=== PATIENT | male | born 1965 | race Caucasian/White ===

== ENCOUNTER 2016-12-22 22:52 | Emergency (ER) | payer OTHER ==
[~2016-12-22 22:52] MED LIST: COUMADIN2 MG PO; COUMADIN2.5 MG PO; COUMADIN7.5 MG PO; LISINOPRIL10 MG PO; LOVENOX100 MG/ML SC; METHADONE HCL10 MG PO; PERCOCET1 TA1 PO; PREDNISONE20 MG PO; PRILOSEC20 MG PO; VICODIN EQUIVAL1 TAB PO; [UNRECOGNIZED DRUG - OTHER] PO
--- NOTE | 2016-12-23 00:59 | ED CLINICAL REPORT ---
Clinical Report - Physicians/Mid Levels [facility] [address] [place] [address] 12/22/2016 22:54 Patient: MILAGROS ANDERSON JR Time Seen: 23:46. Arrived- By private vehicle. Historian- patient. HISTORY OF PRESENT ILLNESS Chief Complaint: LOWER EXTREMITY PAIN and SWELLING. This started about 29 hours ago and is still present. It was gradual in onset and has been waxing/waning. Modifying factors- worsened by walking. Relieved by remaining still. Severity is described as being severe. The quality is noted to be similar to prior episodes. No radiation. Symptoms located in the area of the right leg and left leg. The patient has had swelling, but not had redness. He has had difficulty walking. It has been associated with pain in both legs. No bladder dysfunction, bowel dysfunction, sensory loss or motor loss. Patient notes the possibility of an injury. (on his feet a lot). Similar symptoms previously: Recent medical care: Not recently seen/assessed. REVIEW OF SYSTEMS No cough, chest pain, difficulty breathing, fever or back pain. No headache, sore throat, abdominal pain, vomiting or black stools. No difficulty with urination or bloody stools. All systems otherwise negative, except as recorded above. PAST HISTORY ( Primary physician (De La Cruz) PROBLEMS: DVT - Deep Venous Thrombosis [Active]. --23:30 Jonnathan Esposito R.N. Laceration. Crush Injury. Gastroesophageal Reflux. Spinal Fracture. Chronic Venous Insufficiency. Cellulitis. DVT - Deep Venous Thrombosis. Lung Disease. Heart Disease. Hypertension. Pulmonary Embolism. Hyperventilation. COPD - Chronic Obstructive Pulmonary Disease. Muscle disorder . Contusion. Fall. Anemia. Primary (Essential) Thrombocytosis. Lifestyle / Substance Problems. Abscess. Chronic pain - has been on methadone SURGERIES: Abscess drained. Hernia Repair. Inguinal Hernia Repair). Medications: Aspirin Oral (Tablet 325 mg) 1 tablet, daily. Methadone 100mg daily (quit this program "cold turkey" about two months ago). Allergies: No Known Drug Allergy. SOCIAL HISTORY Smoker- current status unknown. No alcohol use or drug use. ADDITIONAL NOTES The nursing notes have been reviewed. PHYSICAL EXAM Vital Signs: 12/22/2016 23:20 BP: 129/91. HR: 82. RR: 18. O2 saturation: 98%. Temp: 99.2 F. Pain level now: 7/10. Appearance: Alert. Oriented X3. No acute distress. Eyes: Eyes normal inspection. No pale conjunctivae or scleral icterus. ENT: Pharynx normal. Neck: Normal inspection. Neck supple. CVS: Normal heart rate and rhythm. Heart sounds normal. Respiratory: No respiratory distress. Breath sounds normal. Abdomen: Soft and nontender. Back: Normal inspection. No tenderness. Skin: Skin intact. Skin warm and dry. Normal skin color. Normal skin turgor. Extremities: Right leg: moderate tenderness and swelling located in the upper, mid and lower leg. Neurovascular intact distally. No erythema, laceration, abrasion or ecchymosis. No limitation of weight bearing. Left leg: moderate tenderness and mild swelling located in the anterior aspect of upper and mid leg. Neurovascular intact distally. (no fluctuance). No laceration, ecchymosis, puncture wound, foreign body or deformity. No limitation of weight bearing. No signs of infection involving the lower extremities. Extremities otherwise negative. Neuro, Vascular and Tendons: No pulse deficit present. Lower extremity capillary refill not prolonged. Neuro: Oriented X 3. No motor deficit. No sensory deficit. LABS, X-RAYS, AND EKG Lower Extremity Sonography: left leg neg - no DVT; no abscess right lower extremity: chronic nonocclusive clot in Right leg from SFV to Popliteal. The exam was performed by a technician plant and maintenance. A comparison with prior studies reveals that the findings are unchanged. Pulse Oximetry: 12/22/2016 23:20 O2 saturation: 98%. (FIO2 - room air). Interpretation: normal. PROGRESS AND PROCEDURES Course of Care: Lovenox 80 mg subQ given. This is a longstanding problem. Long discussion with pt about narcotic use - pt wishes to have opiate, but he exceeds the limit of our pain plan. Patient/family counseled. Old medical records ordered. (4 visits to [facility] ED in past 12 months with narcotic managment). Disposition: Discharged. Condition: stable and improved. CLINICAL IMPRESSION Chronic deep venous thrombosis of the right popliteal and tibial vein. Muscle strain of the anterior aspect of the left lower leg. INSTRUCTIONS Apply ice. Elevate affected areas above chest level. Do not smoke. Seek medical help to quit smoking. Warnings: Further evaluation is necessary in order to recheck abnormal lab and obtain test results. It is very important to follow up with a physician. GENERAL WARNINGS: Return or contact your physician immediately if your condition worsens or changes unexpectedly, if not improving as expected, or if other problems arise. Prescription Medications: Coumadin 5 mg: take 1 tablet orally every 24 hours. Dispense five (5). No refills. Substitution is permissible. Follow-up: Follow up with your doctor tomorrow. Screening today revealed the patient's blood pressure to be in the hypertensive range. The patient should follow up with a primary care provider for blood pressure management. Follow-up with: Ed Li MD, [facility], , [facility], [address] [place] [address] Follow up tomorrow. Follow-up with: [facility], , , [facility] [address], [place] [address]; [facility], , , [address] [place] [address] , [place], ; [facility], , [address] [place] [address] Follow up tomorrow. (Electronically signed by Arnoldo Kramer DO 12/23/2016 1:45)
--- NOTE | 2016-12-23 00:59 | ED ORDER SUMMARY ---
..... Patient: MILAGROS ANDERSON JR OrderSheet [facility] VisitID: [id number] [address] [place] [address] 51y, M Registration Date/Time: 12/22/2016 ORDER SHEET Weight: 80.7 kg (stated) Allergies: No Known Drug Allergy GENERAL ORDERS: US Venous Bilat Urgent (23:54 12/22/2016 Fredy MELTON) ([facility] Sc[facility] (1:02 Yamila R.N.) MEDICATION ORDERS: Lovenox Subcut 80 mg (HIGH ALERT MEDICATION, NOW) (00:55 12/23/2016 Fredy MELTON) (0:58 Yamila R.N.) IV FLUIDS: ORDER SHEET NOTES: [Electronically signed by Arnoldo Kramer DO (01:45 12/23/2016)] [Electronically signed by Jonnathan Esposito R.N. (04:40 12/23/2016)] [Electronically locked/signed by Jonnathan Esposito R.N. (04:40 12/23/2016)]
--- NOTE | 2016-12-23 00:59 | ED ORDER SUMMARY ---
..... Patient: MILAGROS ANDERSON JR OrderSheet [facility] VisitID: [id number] [address] [place] [address] 51y, M Registration Date/Time: 12/22/2016 ORDER SHEET Weight: 80.7 kg (stated) Allergies: No Known Drug Allergy GENERAL ORDERS: US Venous Bilat Urgent (23:54 12/22/2016 Fredy MELTON) (Ac 23:[facility] Operator) (1:02 Yamila R.N.) MEDICATION ORDERS: Lovenox Subcut 80 mg (HIGH ALERT MEDICATION, NOW) (00:55 12/23/2016 Fredy MELTON) (0:58 Yamila R.N.) IV FLUIDS: ORDER SHEET NOTES: [Electronically signed by rAnoldo Kramer DO (01:45 12/23/2016)] [Electronically signed by Jonnathan Esposito R.N. (04:40 12/23/2016)] [Electronically locked/signed by Jonnathan Esposito R.N. (04:40 12/23/2016)]
--- NOTE | 2016-12-23 00:59 | ED CLINICAL REPORT ---
Clinical Report - Physicians/Mid Levels [facility] [address] [place] [address] 12/22/2016 22:54 Patient: MILAGROS ANDERSON JR Time Seen: 23:46. Arrived- By private vehicle. Historian- patient. HISTORY OF PRESENT ILLNESS Chief Complaint: LOWER EXTREMITY PAIN and SWELLING. This started about 29 hours ago and is still present. It was gradual in onset and has been waxing/waning. Modifying factors- worsened by walking. Relieved by remaining still. Severity is described as being severe. The quality is noted to be similar to prior episodes. No radiation. Symptoms located in the area of the right leg and left leg. The patient has had swelling, but not had redness. He has had difficulty walking. It has been associated with pain in both legs. No bladder dysfunction, bowel dysfunction, sensory loss or motor loss. Patient notes the possibility of an injury. (on his feet a lot). Similar symptoms previously: Recent medical care: Not recently seen/assessed. REVIEW OF SYSTEMS No cough, chest pain, difficulty breathing, fever or back pain. No headache, sore throat, abdominal pain, vomiting or black stools. No difficulty with urination or bloody stools. All systems otherwise negative, except as recorded above. PAST HISTORY ( Primary physician (De La Cruz) PROBLEMS: DVT - Deep Venous Thrombosis [Active]. --23:30 Jonnathan Esposito R.N. Laceration. Crush Injury. Gastroesophageal Reflux. Spinal Fracture. Chronic Venous Insufficiency. Cellulitis. DVT - Deep Venous Thrombosis. Lung Disease. Heart Disease. Hypertension. Pulmonary Embolism. Hyperventilation. COPD - Chronic Obstructive Pulmonary Disease. Muscle disorder . Contusion. Fall. Anemia. Primary (Essential) Thrombocytosis. Lifestyle / Substance Problems. Abscess. Chronic pain - has been on methadone SURGERIES: Abscess drained. Hernia Repair. Inguinal Hernia Repair). Medications: Aspirin Oral (Tablet 325 mg) 1 tablet, daily. Methadone 100mg daily (quit this program "cold turkey" about two months ago). Allergies: No Known Drug Allergy. SOCIAL HISTORY Smoker- current status unknown. No alcohol use or drug use. ADDITIONAL NOTES The nursing notes have been reviewed. PHYSICAL EXAM Vital Signs: 12/22/2016 23:20 BP: 129/91. HR: 82. RR: 18. O2 saturation: 98%. Temp: 99.2 F. Pain level now: 7/10. Appearance: Alert. Oriented X3. No acute distress. Eyes: Eyes normal inspection. No pale conjunctivae or scleral icterus. ENT: Pharynx normal. Neck: Normal inspection. Neck supple. CVS: Normal heart rate and rhythm. Heart sounds normal. Respiratory: No respiratory distress. Breath sounds normal. Abdomen: Soft and nontender. Back: Normal inspection. No tenderness. Skin: Skin intact. Skin warm and dry. Normal skin color. Normal skin turgor. Extremities: Right leg: moderate tenderness and swelling located in the upper, mid and lower leg. Neurovascular intact distally. No erythema, laceration, abrasion or ecchymosis. No limitation of weight bearing. Left leg: moderate tenderness and mild swelling located in the anterior aspect of upper and mid leg. Neurovascular intact distally. (no fluctuance). No laceration, ecchymosis, puncture wound, foreign body or deformity. No limitation of weight bearing. No signs of infection involving the lower extremities. Extremities otherwise negative. Neuro, Vascular and Tendons: No pulse deficit present. Lower extremity capillary refill not prolonged. Neuro: Oriented X 3. No motor deficit. No sensory deficit. LABS, X-RAYS, AND EKG Lower Extremity Sonography: left leg neg - no DVT; no abscess right lower extremity: chronic nonocclusive clot in Right leg from SFV to Popliteal. The exam was performed by a bench repair technician. A comparison with prior studies reveals that the findings are unchanged. Pulse Oximetry: 12/22/2016 23:20 O2 saturation: 98%. (FIO2 - room air). Interpretation: normal. PROGRESS AND PROCEDURES Course of Care: Lovenox 80 mg subQ given. This is a longstanding problem. Long discussion with pt about narcotic use - pt wishes to have opiate, but he exceeds the limit of our pain plan. Patient/family counseled. Old medical records ordered. ([address] [facility] ED in past 12 months with narcotic managment). Disposition: Discharged. Condition: stable and improved. CLINICAL IMPRESSION Chronic deep venous thrombosis of the right popliteal and tibial vein. Muscle strain of the anterior aspect of the left lower leg. INSTRUCTIONS Apply ice. Elevate affected areas above chest level. Do not smoke. Seek medical help to quit smoking. Warnings: Further evaluation is necessary in order to recheck abnormal lab and obtain test results. It is very important to follow up with a physician. GENERAL WARNINGS: Return or contact your physician immediately if your condition worsens or changes unexpectedly, if not improving as expected, or if other problems arise. Prescription Medications: Coumadin 5 mg: take 1 tablet orally every 24 hours. Dispense five (5). No refills. Substitution is permissible. Follow-up: Follow up with your doctor tomorrow. Screening today revealed the patient's blood pressure to be in the hypertensive range. The patient should follow up with a primary care provider for blood pressure management. Follow-up with: Ed Li MD, [facility], , [facility], [address] [place] [address] Follow up tomorrow. Follow-up with: [facility], , , [facility] [address], [place] [address]; [facility], , , [address] [place] [address] , [place], ; [facility], , [address] [place] [address] Follow up tomorrow. (Electronically signed by Arnoldo Kramer DO 12/23/2016 1:45)
--- NOTE | 2016-12-23 00:59 | ED NURSING NOTES ---
Clinical Report - Nurses [facility] [address] [place] [address] 12/22/2016 22:54 Patient: MILAGROS ANDERSON JR TRIAGE Triage time 23:Dec 22 2016. Acuity: LEVEL 3. Chief Complaint: RIGHT LOWER EXTREMITY PAIN, SWELLING and REDNESS. LEFT LOWER EXTREMITY PAIN, SWELLING and REDNESS. Alert. SEPSIS SCREEN: Sepsis Screen. Negative (no infection suspected/documented). JUAN ANTONIO COMA SCORE: Juan Antonio Coma Scale: 15- eyes open spontaneously (4); best verbal response- oriented x 4 (5); best motor response- obeys commands (6). --23:38 Jonnathan Esposito R.N. 23:20 12/22/16. BP: 129/91. HR: 82. RR: 18. O2 saturation: 98%. Temp: 99.2 F. Pain level now: 7/10. Additional comments: RLE> LLD. --23:38 Jonnathan Esposito R.N. Weight: 80.7 kg stated. Height/Length: 70 inches Per Patient. BMI: 25.5. --23:32 Jonnathan Esposito R.N. Medications Methadone 100mg daily (quit this program "cold turkey" about two months ago). --23:27 Jonnathan Esposito R.N. Aspirin Oral (Tablet 325 mg) 1 tablet, daily. --23:34 Jonnathan Esposito R.N. Medication/allergy information source: the patient. --23:38 Jonnathan Esposito R.N. Allergies No Known Drug Allergy. --23:27 Jonnathan Esposito R.N. History Arrived by private vehicle. Historian: patient. Accompanied by family. Primary physician (Dorothy). ( Fighting a DVT in the RLE and now having pain and swelling in the LLE. Pt states that he forgot to take his Xarelto for the last two weeks (he ran out of the RX and didn't get it refills).). No injury occurred. This occurred yesterday (about 29 hours ago). He has had swelling and trouble walking. 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 (took a hot shower. Vicodin 5/325 (bowrrowed from sister). PAST MEDICAL HX: Tetanus status: up-to-date. Immunizations: status is unknown. SOCIAL HX: Light tobacco smoker (cigarette)- less than 1/2 a pack per day. No alcohol use or drug use. No infectious disease exposure. ABUSE ASSESSMENT: No report of abuse. FALL RISK ASSESSMENT: Fall risk assessment completed. No fall risk identified. NUTRITIONAL RISK ASSESSMENT: The nutritional risk assessment revealed no deficiencies. FUNCTIONAL ASSESSMENT: Functional assessment: no impairments noted. LEARNING NEEDS ASSESSMENT: The learning needs assessment revealed no barriers. SKIN INTEGRITY ASSESSMENT: Skin integrity risk assessment completed. No skin integrity risk identified. --23:38 Jonnathan Esposito R.N. PROBLEMS: DVT - Deep Venous Thrombosis [Active]. --23:30 Jonnathan Esposito R.N. Laceration. Crush Injury. Gastroesophageal Reflux. Spinal Fracture. Chronic Venous Insufficiency. Cellulitis. DVT - Deep Venous Thrombosis. Lung Disease. Heart Disease. Hypertension. Pulmonary Embolism. Abnormal Test. Hyperventilation. COPD - Chronic Obstructive Pulmonary Disease. Muscle disorder . Contusion. Fall. Immunizations. Anemia. Primary (Essential) Thrombocytosis. Lifestyle / Substance Problems. Abscess. --23:30 Jonnathan Esposito R.N. ADDITIONAL SURGERIES: Abscess drained. Hernia Repair. Inguinal Hernia Repair. --23:31 Jonnathan Esposito R.N. Interventions ID band on patient. To treatment room. --23:38 Jonnathan Esposito R.N. PHYSICAL ASSESSMENT Ambulatory to room. GENERAL / NEURO / PSYCH: Alert. EXTREMITIES: Right-sided and left-sided calf tenderness. Extremity pulses are within normal limits. Right leg: tenderness and swelling. Left leg: tenderness and swelling. SKIN: Skin intact. Skin is warm and dry. --23:38 Jonnathan Esposito R.N. NURSING PROGRESS NOTES Patient gowned. Reassurance given. Patient identifiers checked. Call light placed in reach. Side rails up x 1. Bed placed in lowest position. Brakes of bed on. Patient ready for evaluation- chart flagged and ED physician notified. --23:39 Jonnathan Esposito R.N. 00:58 12/23/2016 Lovenox (Enoxaparin Sodium) Subcutaneous 80 mg given. Given in the right abdomen. Allergies verified and confirmed 5 rights. --00:58 Jonnathan Esposito R.N. 00:05 12/23/16. BP: 126/76. HR: 101. RR: 18. Pain level now: 02/28. --04:39 Jonnathan Esposito R.N. DISPOSITION / DISCHARGE 01:10 12/23/16. BP: 145/81. HR: 89. RR: 18. O2 saturation: 100% on room air. Temp: 98.6 F. Pain level now: 03/31. Additional comments: BLE's pain. --01:32 Jonnathan Esposito R.N. Departure time: 0120. --01:32 Jonnathan Esposito R.N. 01:20. Condition at departure: unchanged. No learning barriers present. Discharge instructions provided and reviewed with the patient. Reviewed medication(s) (prescription given to pt). Reviewed referral to family practice for followup. Patient verbalized understanding. Written instructions provided in Romanian. The patient was discharged by the physician. He was discharged home and accompanied by loan servicing officer. He left the Emergency Department ambulatory and via private vehicle. Batch Unit Treater driving. --01:33 Jonnathan Esposito R.N. Locked/Released at 12/23/2016 4:40 by Jonnathan Esposito R.N.
--- NOTE | 2016-12-23 00:59 | ED NURSING NOTES ---
Clinical Report - Nurses [facility] [address] [place] [address] 12/22/2016 22:54 Patient: MILAGROS ANDERSON JR TRIAGE Triage time 23:Dec 22 2016. Acuity: LEVEL 3. Chief Complaint: RIGHT LOWER EXTREMITY PAIN, SWELLING and REDNESS. LEFT LOWER EXTREMITY PAIN, SWELLING and REDNESS. Alert. SEPSIS SCREEN: Sepsis Screen. Negative (no infection suspected/documented). JUAN ANTONIO COMA SCORE: Juan Antonio Coma Scale: 15- eyes open spontaneously (4); best verbal response- oriented x 4 (5); best motor response- obeys commands (6). --23:38 Jonnathan Esposito R.N. 23:20 12/22/16. BP: 129/91. HR: 82. RR: 18. O2 saturation: 98%. Temp: 99.2 F. Pain level now: 7/10. Additional comments: RLE> LLD. --23:38 Jonnathan Esposito R.N. Weight: 80.7 kg stated. Height/Length: 70 inches Per Patient. BMI: 25.5. --23:32 Jonnathan Esposito R.N. Medications Methadone 100mg daily (quit this program "cold turkey" about two months ago). --23:27 Jonnathan Esposito R.N. Aspirin Oral (Tablet 325 mg) 1 tablet, daily. --23:34 Jonnathan Esposito R.N. Medication/allergy information source: the patient. --23:38 Jonnathan Esposito R.N. Allergies No Known Drug Allergy. --23:27 Jonnathan Esposito R.N. History Arrived by private vehicle. Historian: patient. Accompanied by family. Primary physician (Dorothy). ( Fighting a DVT in the RLE and now having pain and swelling in the LLE. Pt states that he forgot to take his Xarelto for the last two weeks (he ran out of the RX and didn't get it refills).). No injury occurred. This occurred yesterday (about 29 hours ago). He has had swelling and trouble walking. 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 (took a hot shower. Vicodin 5/325 (bowrrowed from sister). PAST MEDICAL HX: Tetanus status: up-to-date. Immunizations: status is unknown. SOCIAL HX: Light tobacco smoker (cigarette)- less than 1/2 a pack per day. No alcohol use or drug use. No infectious disease exposure. ABUSE ASSESSMENT: No report of abuse. FALL RISK ASSESSMENT: Fall risk assessment completed. No fall risk identified. NUTRITIONAL RISK ASSESSMENT: The nutritional risk assessment revealed no deficiencies. FUNCTIONAL ASSESSMENT: Functional assessment: no impairments noted. LEARNING NEEDS ASSESSMENT: The learning needs assessment revealed no barriers. SKIN INTEGRITY ASSESSMENT: Skin integrity risk assessment completed. No skin integrity risk identified. --23:38 Jonnathan Esposito R.N. PROBLEMS: DVT - Deep Venous Thrombosis [Active]. --23:30 Jonnathan Esposito R.N. Laceration. Crush Injury. Gastroesophageal Reflux. Spinal Fracture. Chronic Venous Insufficiency. Cellulitis. DVT - Deep Venous Thrombosis. Lung Disease. Heart Disease. Hypertension. Pulmonary Embolism. Abnormal Test. Hyperventilation. COPD - Chronic Obstructive Pulmonary Disease. Muscle disorder . Contusion. Fall. Immunizations. Anemia. Primary (Essential) Thrombocytosis. Lifestyle / Substance Problems. Abscess. --23:30 Jonnathan Esposito R.N. ADDITIONAL SURGERIES: Abscess drained. Hernia Repair. Inguinal Hernia Repair. --23:31 Jonnathan Esposito R.N. Interventions ID band on patient. To treatment room. --23:38 Jonnathan Esposito R.N. PHYSICAL ASSESSMENT Ambulatory to room. GENERAL / NEURO / PSYCH: Alert. EXTREMITIES: Right-sided and left-sided calf tenderness. Extremity pulses are within normal limits. Right leg: tenderness and swelling. Left leg: tenderness and swelling. SKIN: Skin intact. Skin is warm and dry. --23:38 Jonnathan Esposito R.N. NURSING PROGRESS NOTES Patient gowned. Reassurance given. Patient identifiers checked. Call light placed in reach. Side rails up x 1. Bed placed in lowest position. Brakes of bed on. Patient ready for evaluation- chart flagged and ED physician notified. --23:39 Jonnathan Esposito R.N. 00:58 12/23/2016 Lovenox (Enoxaparin Sodium) Subcutaneous 80 mg given. Given in the right abdomen. Allergies verified and confirmed 5 rights. --00:58 Jonnathan Esposito R.N. 00:05 12/23/16. BP: 126/76. HR: 101. RR: 18. Pain level now: 02/28. --04:39 Jonnathan Esposito R.N. DISPOSITION / DISCHARGE 01:10 12/23/16. BP: 145/81. HR: 89. RR: 18. O2 saturation: 100% on room air. Temp: 98.6 F. Pain level now: 03/31. Additional comments: BLE's pain. --01:32 Jonnathan Esposito R.N. Departure time: 0120. --01:32 Jonnathan Esposito R.N. 01:20. Condition at departure: unchanged. No learning barriers present. Discharge instructions provided and reviewed with the patient. Reviewed medication(s) (prescription given to pt). Reviewed referral to family practice for followup. Patient verbalized understanding. Written instructions provided in Turkish. The patient was discharged by the physician. He was discharged home and accompanied by mechanical design technician. He left the Emergency Department ambulatory and via private vehicle. Glaze Maker driving. --01:33 Jonnathan Esposito R.N. Locked/Released at 12/23/2016 4:40 by Jonnathan Esposito R.N.
--- NOTE | 2016-12-23 04:40 | ED MAR SUMMARY ---
..... Medication Administration Record [facility] [address] [place] [address] Patient: MILAGROS ANDERSON Visit ID: [id number] 51y, M Weight: 80.7 kg Height/Length: 70 in BMI: 25.5 ALLERGIES: No Known Drug Allergy Given 00:58 12/23/2016 Jonnathan Esposito R.N. Medication Administered: LOVENOX [SUBCUTANEOUS] (ENOXAPARIN SODIUM), Dose: 80 mg Subcutaneous. Medication Ordered: Lovenox Subcut 80 mg (HIGH ALERT MEDICATION, NOW).
--- NOTE | 2016-12-23 04:40 | ED DISCHARGE INSTRUCTIONS ---
Patient: MILAGROS ANDERSON JR General Instructions [facility] VisitID: [id number] [address] [place] [address] 51y, M Registration Date/Time: 12/22/2016 Chronic deep venous thrombosis of the right popliteal and tibial vein. Muscle strain of the anterior aspect of the left lower leg. INSTRUCTIONS Apply ice. Elevate affected areas above chest level. Do not smoke. Seek medical help to quit smoking. Warnings: Further evaluation is necessary in order to recheck abnormal lab and obtain test results. It is very important to follow up with a physician. GENERAL WARNINGS: Return or contact your physician immediately if your condition worsens or changes unexpectedly, if not improving as expected, or if other problems arise. Prescription Medications: Coumadin 5 mg: take 1 tablet orally every 24 hours. Dispense five (5). No refills. Substitution is permissible. Follow-up: Follow up with your doctor tomorrow. Screening today revealed the patient's blood pressure to be in the hypertensive range. The patient should follow up with a primary care provider for blood pressure management. Follow-up with: Ed Li MD, [facility], , [facility], [address] [place] [address] [place] [address] Follow up tomorrow. Follow-up with: [facility], , , [address], [place] [address]; [facility], , , [address] [place] [address], ; [facility], [facility], , [address] [place] [address] Follow up tomorrow. ADDITIONAL INFORMATION Muscle Strain,Extremity A MUSCLE STRAIN is a stretching and tearing of muscle fibers. This causes pain, especially with motion of that muscle. There may also be some swelling and bruising. Home Care: 1) Keep the injured area raised to reduce pain and swelling. This is especially important during the first 48 hours. 2) Make an ice pack (ice cubes in a plastic bag, wrapped in a towel) and apply for 20 minutes every 1-2 hours the first day. You should continue with ice packs 3-4 times a day for the second and third days. Unless otherwise instructed, on the fourth day you may begin hot soaks or hot packs (small towel soaked in hot water) 3-4 times a day while you gently exercise the involved area. 3) You may use acetaminophen (Tylenol) or ibuprofen (Motrin, Advil) to control pain, unless another medicine was prescribed. [ NOTE : If you have chronic liver or kidney disease or ever had a stomach ulcer or GI bleeding, talk with your doctor before using these medicines.] 4) For LEG STRAINS: If CRUTCHES have been recommended, do not bear full weight on the injured leg until you can do so without pain. You may return to sports when you are able to hop and run on the injured leg without pain. Follow Up with your doctor or this facility if you are not improving within the next five days. Get Prompt Medical Attention if any of the following occur: -- Fingers or toes become swollen, cold, blue, numb or tingly -- Pain or swelling increases Deep Vein Thrombosis Deep Vein Thrombosis (DVT) means there is a blood clot in a deep vein of the leg. This may cause redness, swelling, warmth and pain of the leg. If the blood clot grows larger, a piece may break off and go to the lungs (pulmonary embolus) or to the brain (stroke). Factors that increase risk of a DVT include: overweight, smoking, use of estrogen replacement therapy. Prolonged periods without movement (such as long distance travel, wearing a fracture cast, and prolonged bed rest after surgery or during an illness) also increases the risk of a DVT. Home Care: Stay off the affected leg as much as possible during the next week. When sitting or lying down, keep the leg elevated. Compression stockings may be advised to improve blood flow in the lower legs. When resting, move your ankles, toes and knees frequently to stimulate blood flow. You will be prescribed an anti-coagulant medicine (pills or shots). Take it exactly as directed. Follow Up with your doctor as advised. NOTE: A radiologist will review any X-rays that were taken. We will notify you of any new findings that may affect your care. Get Prompt Medical Attention if any of the following occur: Shortness of breath or painful breathing Chest pain, repeated cough or coughing up blood Fever of 100.4F (38C) or higher, or as directed by your healthcare provider Increasing swelling or increasing pain in the leg Spreading redness Unexpected bleeding (nose, gums, cuts, urinary tract, vagina, rectum) How To Quit Smoking Smoking is one of the hardest habits to break. About half of all those who have ever smoked have been able to quit, and most of those (about 70%) who still smoke want to quit. Here are some of the best ways to stop smoking. Keep Trying: It takes most smokers about 8 tries before they are finally able to fully quit. So, the more often you try and fail, the better your chance of quitting the next time! So, don't give up! Go Cold [place]: Most ex-smokers quit cold turkey. Trying to cut back gradually doesn't seem to work as well, perhaps because it continues the smoking habit. Also, it is possible to fool yourself by inhaling more while smoking fewer cigarettes. This results in the same amount of nicotine in your body! Get Support: Support programs can make an important difference, especially for the heavy smoker. These groups offer lectures, methods to change your behavior and peer support. Call the free national Quitline for more information. 324-LQVJ-RFG (288-898-2338). Low-cost or free programs are offered by many hospitals, local chapters of the [place] [employer] (374-909-5545) and the [place] [employer] (996-098-7997). Support at home is important too. Non-smokers can help by offering praise and encouragement. If the smoker fails to quit, encourage them to try again! Jibr-Onl-Whitynp Medicines: For those who can't quit on their own, Nicotine Replacement Therapy (NRT) may make quitting much easier. Certain aids such as the nicotine patch, gum and lozenge are available without a prescription. However, it is best to use these under the guidance of your doctor. The skin patch provides a steady supply of nicotine to the body. Nicotine gum and lozenge gives temporary bursts of low levels of nicotine. Both methods take the edge off the craving for cigarettes. WARNING: If you feel symptoms of nicotine overdose, such as nausea, vomiting, dizziness, weakness, or fast heartbeat, stop using these and see your doctor. Prescription Medicines: After evaluating your smoking patterns and prior attempts at quitting, your doctor may offer a prescription medicine such as bupropion (Zyban, Wellbutrin), varenicline (Chantix, Champix), a niocotine inhaler or nasal spray. Each has its unique advantage and side effects which your doctor can review with you. Health Benefits Of Quitting: The benefits of quitting start right away and keep improving the longer you go without smokin minutes: blood pressure and pulse return to normal 8 hours: oxygen levels return to normal 2 days: ability to smell and taste begins to improve as damaged nerves start to regrow 2-3 weeks: circulation and lung function improves 1-9 months: decreased cough, congestion and shortness of breath; less tired 1 year: risk of heart attack decreases by half 5 years: risk of lung cancer decreases by half; risk of stroke becomes the same as a non-smoker For information about how to quit smoking, visit the following links: National Cancer T[employer] , Clearing the Air, Quit Smoking Today - an online booklet. http://www.smokefree.gov/pubs/clearing_the_air.pdf Smokefree.gov http://smokefree.gov/ QuitNet http://www.quitnet.com/ Warfarin Sodium Oral tablet What is this medicine? WARFARIN (WAR far in) is an anticoagulant. It is used to treat or prevent clots in the veins, arteries, lungs, or heart. How should I use this medicine? Take this medicine by mouth with a glass of water. Follow the directions on the prescription label. You can take this medicine with or without food. Take your medicine at the same time each day. Do not take it more often than directed. Do not stop taking except on your doctor's advice. Stopping this medicine may increase your risk of a blood clot. Be sure to refill your prescription before you run out of medicine. If your doctor or healthcare professional calls to change your dose, write down the dose and any other instructions. Always read the dose and instructions back to him or her to make sure you understand them. Tell your doctor or healthcare professional what strength of tablets you have on hand. Ask how many tablets you should take to equal your new dose. Write the date on the new instructions and keep them near your medicine. If you are told to stop taking your medicine until your next blood test, call your doctor or healthcare professional if you do not hear anything within 24 hours of the test to find out your new dose or when to restart your prior dose. A special MedGuide will be given to you by the pharmacist with each prescription and refill. Be sure to read this information carefully each time. Talk to your insurance defense attorney regarding the use of this medicine in children. Special care may be needed. What side effects may I notice from receiving this medicine? Side effects that you should report to your doctor or health director of critical care as soon as possible: back pain chills dizziness fever heavy menstrual bleeding or vaginal bleeding painful, blue, or purple toes painful, prolonged erection signs and symptoms of bleeding such as bloody or black, tarry stools; red or dark-brown urine; spitting up blood or brown material that looks like coffee grounds; red spots on the skin; unusual bruising or bleeding from the eye, gums, or nose-skin rash, itching or skin damage stomach pain unusually weak or tired yellowing of skin or eyes Side effects that usually do not require medical attention (report to your doctor or health director of critical care if they continue or are bothersome): diarrhea hair loss What may interact with this medicine? Do not take this medicine with any of the following medications: agents that prevent or dissolve blood clots aspirin or other salicylates danshen dextrothyroxine mifepristone Edgar's Wort red yeast rice This medicine may also interact with the following medications: acetaminophen agents that lower cholesterol alcohol allopurinol amiodarone antibiotics or medicines for treating bacterial, fungal or viral infections azathioprine barbiturate medicines for inducing sleep or treating seizures certain medicines for diabetes certain medicines for heart rhythm problems certain medicines for high blood pressure chloral hydrate cisapride disulfiram female hormones, including contraceptive or control pills general anesthetics herbal or dietary products like garlic, ginkgo, ginseng, green tea, or kava kava influenza virus vaccine male hormones medicines for mental depression or psychosis medicines for some types of cancer medicines for stomach problems methylphenidate NSAIDs, medicines for pain and inflammation, like ibuprofen or naproxen propoxyphene quinidine, quinine raloxifene seizure or epilepsy medicine like carbamazepine, phenytoin, and valproic acid steroids like cortisone and prednisone tamoxifen thyroid medicine tramadol vitamin c, vitamin e, and vitamin K zafirlukast zileuton What if I miss a dose? It is important not to miss a dose. If you miss a dose, call your healthcare provider. Take the dose as soon as possible on the same day. If it is almost time for your next dose, take only that dose. Do not take double or extra doses to make up for a missed dose. Where should I keep my medicine? Keep out of the reach of children. Store at room temperature between 15 and 30 degrees C (59 and 86 degrees F). Protect from light. Throw away any unused medicine after the expiration date. Do not flush down the toilet. What should I tell my health care provider before I take this medicine? They need to know if you have any of these conditions: alcoholism anemia bleeding disorders cancer diabetes heart disease high blood pressure history of bleeding in the gastrointestinal tract history of stroke or other brain injury or disease kidney or liver disease protein C deficiency protein S deficiency psychosis or dementia recent injury, recent or planned surgery or procedure an unusual or allergic reaction to warfarin, other medicines, foods, dyes, or preservatives or trying to get breast-feeding What should I watch for while using this medicine? Visit your doctor or health director of critical care for regular checks on your progress. You will need to have a blood test called a PT/INR regularly. The PT/INR blood test is done to make sure you are getting the right dose of this medicine. It is important to not miss your appointment for the blood tests. When you first start taking this medicine, these tests are done often. Once the correct dose is determined and you take your medicine properly, these tests can be done less often. Notify your doctor or health director of critical care and seek emergency treatment if you develop breathing problems; changes in vision; chest pain; severe, sudden headache; pain, swelling, warmth in the leg; trouble speaking; sudden numbness or weakness of the face, arm or leg. These can be signs that your condition has gotten worse. While you are taking this medicine, carry an identification card with your name, the name and dose of medicine(s) being used, and the name and phone number of your doctor or health director of critical care or person to contact in an emergency. Do not start taking or stop taking any medicines or drjt-aat-qogiwkj medicines except on the advice of your doctor or health director of critical care. You should discuss your diet with your doctor or health director of critical care. Do not make major changes in your diet. Vitamin K can affect how well this medicine works. Many foods contain vitamin K. It is important to eat a consistent amount of foods with vitamin K. Other foods with vitamin K that you should eat in consistent amounts are asparagus, basil, beef or pork liver, black eyed peas, broccoli, brussel sprouts, cabbage, chickpeas, cucumber with peel, green onions, green tea, okra, parsley, peas, thyme, and green leafy vegetables like beet greens, ariadne greens, endive, kale, mustard greens, spinach, turnip greens, watercress, or certain lettuces like green leaf or dinesh. This medicine can cause defects or bleeding in an unborn child. Women of childbearing age should use effective control while taking this medicine. If a woman becomes while taking this medicine, she should discuss the potential risks and her options with her health director of critical care. Avoid sports and activities that might cause injury while you are using this medicine. Severe falls or injuries can cause unseen bleeding. Be careful when using sharp tools or knives. Consider using an electric razor. Take special care brushing or flossing your teeth. Report any injuries, bruising, or red spots on the skin to your doctor or health director of critical care. If you have an illness that causes vomiting, diarrhea, or fever for more than a few days, contact your doctor. Also check with your doctor if you are unable to eat for several days. These problems can change the effect of this medicine. Even after you stop taking this medicine, it takes several days before your body recovers its normal ability to clot blood. Ask your doctor or health director of critical care how long you need to be careful. If you are going to have surgery or dental work, tell your doctor or health director of critical care that you have been taking this medicine. You have been given the following additional information: Muscle Strain, Extremity DVT Smoking Cessation Warfarin Sodium Oral tablet (Electronically signed by Arnoldo Kramer DO 12/23/2016 1:45)
--- NOTE | 2016-12-23 04:40 | ED MED RECONCILIATION SUMMARY ---
Patient: MILAGROS ANDERSON Yasmine MADRIGAL Medication Reconciliation Report [facility] VisitID: [id number] [address] [place] [address] 51y, M Registration Date/Time: 12/22/2016 Weight: 80.7 kg Height/Length: 70 in. 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 Dispense five (5). No refills. Substitution is permissible. -- Arnoldo Kramer,
--- NOTE | 2016-12-23 04:40 | ED DISCHARGE INSTRUCTIONS ---
Patient: MILAGROS ANDERSON JR General Instructions [facility] VisitID: [id number] [address] [place] [address] 51y, M Registration Date/Time: 12/22/2016 Chronic deep venous thrombosis of the right popliteal and tibial vein. Muscle strain of the anterior aspect of the left lower leg. INSTRUCTIONS Apply ice. Elevate affected areas above chest level. Do not smoke. Seek medical help to quit smoking. Warnings: Further evaluation is necessary in order to recheck abnormal lab and obtain test results. It is very important to follow up with a physician. GENERAL WARNINGS: Return or contact your physician immediately if your condition worsens or changes unexpectedly, if not improving as expected, or if other problems arise. Prescription Medications: Coumadin 5 mg: take 1 tablet orally every 24 hours. Dispense five (5). No refills. Substitution is permissible. Follow-up: Follow up with your doctor tomorrow. Screening today revealed the patient's blood pressure to be in the hypertensive range. The patient should follow up with a primary care provider for blood pressure management. Follow-up with: Ed Li MD, [facility], , [facility], [address] [place] [address] [place] [address] Follow up tomorrow. Follow-up with: [facility], , , [address], [place] [address]; [facility], , , [address] [place] [address], ; [facility], [facility], , [address] [place] [address] Follow up tomorrow. ADDITIONAL INFORMATION Muscle Strain,Extremity A MUSCLE STRAIN is a stretching and tearing of muscle fibers. This causes pain, especially with motion of that muscle. There may also be some swelling and bruising. Home Care: 1) Keep the injured area raised to reduce pain and swelling. This is especially important during the first 48 hours. 2) Make an ice pack (ice cubes in a plastic bag, wrapped in a towel) and apply for 20 minutes every 1-2 hours the first day. You should continue with ice packs 3-4 times a day for the second and third days. Unless otherwise instructed, on the fourth day you may begin hot soaks or hot packs (small towel soaked in hot water) 3-4 times a day while you gently exercise the involved area. 3) You may use acetaminophen (Tylenol) or ibuprofen (Motrin, Advil) to control pain, unless another medicine was prescribed. [ NOTE : If you have chronic liver or kidney disease or ever had a stomach ulcer or GI bleeding, talk with your doctor before using these medicines.] 4) For LEG STRAINS: If CRUTCHES have been recommended, do not bear full weight on the injured leg until you can do so without pain. You may return to sports when you are able to hop and run on the injured leg without pain. Follow Up with your doctor or this facility if you are not improving within the next five days. Get Prompt Medical Attention if any of the following occur: -- Fingers or toes become swollen, cold, blue, numb or tingly -- Pain or swelling increases Deep Vein Thrombosis Deep Vein Thrombosis (DVT) means there is a blood clot in a deep vein of the leg. This may cause redness, swelling, warmth and pain of the leg. If the blood clot grows larger, a piece may break off and go to the lungs (pulmonary embolus) or to the brain (stroke). Factors that increase risk of a DVT include: overweight, smoking, use of estrogen replacement therapy. Prolonged periods without movement (such as long distance travel, wearing a fracture cast, and prolonged bed rest after surgery or during an illness) also increases the risk of a DVT. Home Care: Stay off the affected leg as much as possible during the next week. When sitting or lying down, keep the leg elevated. Compression stockings may be advised to improve blood flow in the lower legs. When resting, move your ankles, toes and knees frequently to stimulate blood flow. You will be prescribed an anti-coagulant medicine (pills or shots). Take it exactly as directed. Follow Up with your doctor as advised. NOTE: A radiologist will review any X-rays that were taken. We will notify you of any new findings that may affect your care. Get Prompt Medical Attention if any of the following occur: Shortness of breath or painful breathing Chest pain, repeated cough or coughing up blood Fever of 100.4F (38C) or higher, or as directed by your healthcare provider Increasing swelling or increasing pain in the leg Spreading redness Unexpected bleeding (nose, gums, cuts, urinary tract, vagina, rectum) How To Quit Smoking Smoking is one of the hardest habits to break. About half of all those who have ever smoked have been able to quit, and most of those (about 70%) who still smoke want to quit. Here are some of the best ways to stop smoking. Keep Trying: It takes most smokers about 8 tries before they are finally able to fully quit. So, the more often you try and fail, the better your chance of quitting the next time! So, don't give up! Go Cold Herreid: Most ex-smokers quit cold turkey. Trying to cut back gradually doesn't seem to work as well, perhaps because it continues the smoking habit. Also, it is possible to fool yourself by inhaling more while smoking fewer cigarettes. This results in the same amount of nicotine in your body! Get Support: Support programs can make an important difference, especially for the heavy smoker. These groups offer lectures, methods to change your behavior and peer support. Call the free national Quitline for more information. 533-UQZB-BSC (079-661-9139). Low-cost or free programs are offered by many hospitals, local chapters of the [employer] (712-328-3658) and the [employer] (308-162-5767). Support at home is important too. Non-smokers can help by offering praise and encouragement. If the smoker fails to quit, encourage them to try again! Mnhk-Hsa-Yulbcth Medicines: For those who can't quit on their own, Nicotine Replacement Therapy (NRT) may make quitting much easier. Certain aids such as the nicotine patch, gum and lozenge are available without a prescription. However, it is best to use these under the guidance of your doctor. The skin patch provides a steady supply of nicotine to the body. Nicotine gum and lozenge gives temporary bursts of low levels of nicotine. Both methods take the edge off the craving for cigarettes. WARNING: If you feel symptoms of nicotine overdose, such as nausea, vomiting, dizziness, weakness, or fast heartbeat, stop using these and see your doctor. Prescription Medicines: After evaluating your smoking patterns and prior attempts at quitting, your doctor may offer a prescription medicine such as bupropion (Zyban, Wellbutrin), varenicline (Chantix, Champix), a niocotine inhaler or nasal spray. Each has its unique advantage and side effects which your doctor can review with you. Health Benefits Of Quitting: The benefits of quitting start right away and keep improving the longer you go without smokin minutes: blood pressure and pulse return to normal 8 hours: oxygen levels return to normal 2 days: ability to smell and taste begins to improve as damaged nerves start to regrow 2-3 weeks: circulation and lung function improves 1-9 months: decreased cough, congestion and shortness of breath; less tired 1 year: risk of heart attack decreases by half 5 years: risk of lung cancer decreases by half; risk of stroke becomes the same as a non-smoker For information about how to quit smoking, visit the following links: National [employer] [place] , Clearing the Air, Quit Smoking Today - an online booklet. http://www.smokefree.gov/pubs/clearing_the_air.pdf Smokefree.gov http://smokefree.gov/ QuitNet http://www.quitnet.com/ Warfarin Sodium Oral tablet What is this medicine? WARFARIN (WAR far in) is an anticoagulant. It is used to treat or prevent clots in the veins, arteries, lungs, or heart. How should I use this medicine? Take this medicine by mouth with a glass of water. Follow the directions on the prescription label. You can take this medicine with or without food. Take your medicine at the same time each day. Do not take it more often than directed. Do not stop taking except on your doctor's advice. Stopping this medicine may increase your risk of a blood clot. Be sure to refill your prescription before you run out of medicine. If your doctor or healthcare professional calls to change your dose, write down the dose and any other instructions. Always read the dose and instructions back to him or her to make sure you understand them. Tell your doctor or healthcare professional what strength of tablets you have on hand. Ask how many tablets you should take to equal your new dose. Write the date on the new instructions and keep them near your medicine. If you are told to stop taking your medicine until your next blood test, call your doctor or healthcare professional if you do not hear anything within 24 hours of the test to find out your new dose or when to restart your prior dose. A special MedGuide will be given to you by the pharmacist with each prescription and refill. Be sure to read this information carefully each time. Talk to your lining stitcher regarding the use of this medicine in children. Special care may be needed. What side effects may I notice from receiving this medicine? Side effects that you should report to your doctor or health resident care aid as soon as possible: back pain chills dizziness fever heavy menstrual bleeding or vaginal bleeding painful, blue, or purple toes painful, prolonged erection signs and symptoms of bleeding such as bloody or black, tarry stools; red or dark-brown urine; spitting up blood or brown material that looks like coffee grounds; red spots on the skin; unusual bruising or bleeding from the eye, gums, or nose-skin rash, itching or skin damage stomach pain unusually weak or tired yellowing of skin or eyes Side effects that usually do not require medical attention (report to your doctor or health resident care aid if they continue or are bothersome): diarrhea hair loss What may interact with this medicine? Do not take this medicine with any of the following medications: agents that prevent or dissolve blood clots aspirin or other salicylates danshen dextrothyroxine mifepristone Edgar's Wort red yeast rice This medicine may also interact with the following medications: acetaminophen agents that lower cholesterol alcohol allopurinol amiodarone antibiotics or medicines for treating bacterial, fungal or viral infections azathioprine barbiturate medicines for inducing sleep or treating seizures certain medicines for diabetes certain medicines for heart rhythm problems certain medicines for high blood pressure chloral hydrate cisapride disulfiram female hormones, including contraceptive or control pills general anesthetics herbal or dietary products like garlic, ginkgo, ginseng, green tea, or kava kava influenza virus vaccine male hormones medicines for mental depression or psychosis medicines for some types of cancer medicines for stomach problems methylphenidate NSAIDs, medicines for pain and inflammation, like ibuprofen or naproxen propoxyphene quinidine, quinine raloxifene seizure or epilepsy medicine like carbamazepine, phenytoin, and valproic acid steroids like cortisone and prednisone tamoxifen thyroid medicine tramadol vitamin c, vitamin e, and vitamin K zafirlukast zileuton What if I miss a dose? It is important not to miss a dose. If you miss a dose, call your healthcare provider. Take the dose as soon as possible on the same day. If it is almost time for your next dose, take only that dose. Do not take double or extra doses to make up for a missed dose. Where should I keep my medicine? Keep out of the reach of children. Store at room temperature between 15 and 30 degrees C (59 and 86 degrees F). Protect from light. Throw away any unused medicine after the expiration date. Do not flush down the toilet. What should I tell my health care provider before I take this medicine? They need to know if you have any of these conditions: alcoholism anemia bleeding disorders cancer diabetes heart disease high blood pressure history of bleeding in the gastrointestinal tract history of stroke or other brain injury or disease kidney or liver disease protein C deficiency protein S deficiency psychosis or dementia recent injury, recent or planned surgery or procedure an unusual or allergic reaction to warfarin, other medicines, foods, dyes, or preservatives or trying to get breast-feeding What should I watch for while using this medicine? Visit your doctor or health resident care aid for regular checks on your progress. You will need to have a blood test called a PT/INR regularly. The PT/INR blood test is done to make sure you are getting the right dose of this medicine. It is important to not miss your appointment for the blood tests. When you first start taking this medicine, these tests are done often. Once the correct dose is determined and you take your medicine properly, these tests can be done less often. Notify your doctor or health resident care aid and seek emergency treatment if you develop breathing problems; changes in vision; chest pain; severe, sudden headache; pain, swelling, warmth in the leg; trouble speaking; sudden numbness or weakness of the face, arm or leg. These can be signs that your condition has gotten worse. While you are taking this medicine, carry an identification card with your name, the name and dose of medicine(s) being used, and the name and phone number of your doctor or health resident care aid or person to contact in an emergency. Do not start taking or stop taking any medicines or fllw-ada-aefollk medicines except on the advice of your doctor or health resident care aid. You should discuss your diet with your doctor or health resident care aid. Do not make major changes in your diet. Vitamin K can affect how well this medicine works. Many foods contain vitamin K. It is important to eat a consistent amount of foods with vitamin K. Other foods with vitamin K that you should eat in consistent amounts are asparagus, basil, beef or pork liver, black eyed peas, broccoli, brussel sprouts, cabbage, chickpeas, cucumber with peel, green onions, green tea, okra, parsley, peas, thyme, and green leafy vegetables like beet greens, ariadne greens, endive, kale, mustard greens, spinach, turnip greens, watercress, or certain lettuces like green leaf or dinesh. This medicine can cause defects or bleeding in an unborn child. Women of childbearing age should use effective control while taking this medicine. If a woman becomes while taking this medicine, she should discuss the potential risks and her options with her health resident care aid. Avoid sports and activities that might cause injury while you are using this medicine. Severe falls or injuries can cause unseen bleeding. Be careful when using sharp tools or knives. Consider using an electric razor. Take special care brushing or flossing your teeth. Report any injuries, bruising, or red spots on the skin to your doctor or health resident care aid. If you have an illness that causes vomiting, diarrhea, or fever for more than a few days, contact your doctor. Also check with your doctor if you are unable to eat for several days. These problems can change the effect of this medicine. Even after you stop taking this medicine, it takes several days before your body recovers its normal ability to clot blood. Ask your doctor or health resident care aid how long you need to be careful. If you are going to have surgery or dental work, tell your doctor or health resident care aid that you have been taking this medicine. You have been given the following additional information: Muscle Strain, Extremity DVT Smoking Cessation Warfarin Sodium Oral tablet (Electronically signed by Arnoldo Kramer DO 12/23/2016 1:45)
--- NOTE | 2016-12-23 04:40 | ED MAR SUMMARY ---
..... Medication Administration Record [facility] [address] [place] [address] Patient: MILAGROS ANDERSON Visit ID: [id number] 51y, M Weight: 80.7 kg Height/Length: 70 in BMI: 25.5 ALLERGIES: No Known Drug Allergy Given 00:58 12/23/2016 Jonnathan Esposito R.N. Medication Administered: LOVENOX [SUBCUTANEOUS] (ENOXAPARIN SODIUM), Dose: 80 mg Subcutaneous. Medication Ordered: Lovenox Subcut 80 mg (HIGH ALERT MEDICATION, NOW).
--- NOTE | 2016-12-23 04:40 | ED MED RECONCILIATION SUMMARY ---
Patient: MILAGROS ANDERSON Yasmine MADRIGAL Medication Reconciliation Report [facility] VisitID: [id number] [address] [place] [address] 51y, M Registration Date/Time: 12/22/2016 Weight: 80.7 kg Height/Length: 70 in. 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 Dispense five (5). No refills. Substitution is permissible. -- Arnoldo Kramer,
--- NOTE | 2016-12-26 23:24 | DIAGNOSTIC IMAGING REPORT ---
PROCEDURE: US VENOUS - BILATERAL EXT INDICATION: SWELLING, known right DVT, noncompliant with anticoagulation. TECHNIQUE: Duplex sonography of the deep venous system in both lower extremities was performed. Compression and augmentation techniques were used. COMPARISON: 06/14/2016 FINDINGS: The right superficial femoral vein is duplicated. Each interrogated segment of vein demonstrates mild wall irregularity/thickening suggestive of chronic, nonocclusive thrombus. There is normal color Doppler flow, venous flow by spectral waveform analysis, and compressibility in all interrogated segments. In the left leg, each interrogated segment of deep vein from the common femoral vein into the calf veins demonstrates normal compressibility, augmentation and/or color Doppler flow without filling defect. No evidence of significant soft-tissue edema, soft-tissue mass or cyst. IMPRESSION: 1. Wall thickening throughout the right lower extremity deep venous system consistent with chronic but nonocclusive thrombus. No acute, occlusive right lower extremity DVT. 2. No DVT in the left lower extremity.
== END 2016-12-23 01:20 | disposition home or self-care (01) ==
LOC: ED SRH 22:52
DX: S86.812A Strain of other muscle(s) and tendon(s) at lower leg level, left leg, initial encounter (principal); J44.9 Chronic obstructive pulmonary disease, unspecified; I82.531 Chronic embolism and thrombosis of right popliteal vein; I82.541 Chronic embolism and thrombosis of right tibial vein; X58.XXXA Exposure to other specified factors, initial encounter; Y93.9 Activity, unspecified; Y92.9 Unspecified place or not applicable; Y99.9 Unspecified external cause status; K21.9 Gastro-esophageal reflux disease without esophagitis; I10 Essential (primary) hypertension